=== PATIENT | female | born 1995 | race Two or more races ===

== ENCOUNTER 2020-10-04 11:28 | Emergency (ER) | payer OTHER ==
[2020-10-04 11:53] VITALS: BP 124/73; PULSE 88; TEMP 98.9; BMI 22.4
== END 2020-10-04 12:32 | disposition home or self-care (01) ==
LOC: FER 11:28
DX: Z34.92 Encounter for supervision of normal pregnancy, unspecified, second trimester (principal); Z3A.16 16 weeks gestation of pregnancy
CPT/HCPCS: 84703; 99283-25